=== PATIENT | male | born 1980 | race Caucasian/White ===

== ENCOUNTER 2020-07-03 14:02 | Emergency (ER) | payer SELFPAY | END 2020-07-03 16:00 | disposition home or self-care (01) | LOC: MADERS 14:02 | DX: S63.601A Unspecified sprain of right thumb, initial encounter (principal); I10 Essential (primary) hypertension; F17.220 Nicotine dependence, chewing tobacco, uncomplicated | CPT/HCPCS: 29125 ==

== ENCOUNTER 2020-08-18 14:32 | Emergency (ER) | payer MEDICAID, OTHER, SELFPAY ==
[2020-08-18] MEDS ORDERED: Boostrix 0.5 ML (Tdap) VIAL ONE (16:04)
== END 2020-08-18 16:11 | disposition home or self-care (01) ==
LOC: MADERS 14:32
DX: K52.9 Noninfective gastroenteritis and colitis, unspecified (principal); M79.644 Pain in right finger(s); I10 Essential (primary) hypertension; F17.220 Nicotine dependence, chewing tobacco, uncomplicated
CPT/HCPCS: 90471; 90715

== ENCOUNTER 2020-09-06 11:42 | Emergency (ER) | payer OTHER ==
[2020-09-06] MEDS ORDERED: Clindamycin 150 MG CAP ONE (12:13)
== END 2020-09-06 12:15 | disposition home or self-care (01) ==
LOC: MADERS 11:42
DX: L03.317 Cellulitis of buttock (principal); I10 Essential (primary) hypertension; F17.220 Nicotine dependence, chewing tobacco, uncomplicated
CPT/HCPCS: 99283